=== PATIENT | female | born 2000 | race Two or more races ===

== ENCOUNTER 2018-11-02 19:10 | Emergency (ER) | payer OTHER ==
[~2018-11-02] VITALS: Ht 162.6 cm; Wt 50.8 kg
[2018-11-02] MEDS ORDERED: PRENATAL + DHA1 EAC1 (19:41)
[2018-11-02] MEDS ORDERED: DUI500 PO (22:28)
[2018-11-02] MEDS ORDERED: INTESTINEX680 M1 PO (22:28)
== END 2018-11-02 22:47 ==
LOC: ER 19:10
DX: O23.31 Infections of other parts of urinary tract in pregnancy, first trimester (principal); O26.891 Other specified pregnancy related conditions, first trimester; O23.30 Infections of other parts of urinary tract in pregnancy, unspecified trimester

== ENCOUNTER 2018-12-21 12:49 | Emergency (ER) | payer OTHER ==
[~2018-12-21] VITALS: Ht 162.6 cm; Wt 49.9 kg
[~2018-12-21 12:49] MED LIST: DUI500 PO; INTESTINEX680 M1 PO; PRENATAL + DHA1 EAC1
== END 2018-12-21 20:48 | disposition home or self-care (01) ==
LOC: ER 12:49
DX: O26.892 Other specified pregnancy related conditions, second trimester (principal); R10.2 Pelvic and perineal pain; Z34.02 Encounter for supervision of normal first pregnancy, second trimester

== ENCOUNTER 2019-01-01 13:42 | Emergency (ER) | payer OTHER ==
[~2019-01-01] VITALS: Ht 162.6 cm; Wt 49.9 kg
== END 2019-01-01 17:47 | disposition home or self-care (01) ==
LOC: ER 13:42
DX: O26.891 Other specified pregnancy related conditions, first trimester (principal); R10.2 Pelvic and perineal pain; O26.841 Uterine size-date discrepancy, first trimester; Z34.01 Encounter for supervision of normal first pregnancy, first trimester

== ENCOUNTER → 2019-01-19 | Outpatient (CLI) | payer OTHER | END | disposition home or self-care (01) | LOC: PRENATAL 13:00 | DX: O99.89 Other specified diseases and conditions complicating pregnancy, childbirth and the puerperium (principal); O35.3XX0 Maternal care for (suspected) damage to fetus from viral disease in mother, not applicable or unspecified ==

== ENCOUNTER 2019-03-05 15:25 | Emergency (ER) | payer OTHER ==
[~2019-03-05] VITALS: Ht 162.6 cm; Wt 52.6 kg
[2019-03-05] MEDS ORDERED: PRENATAL TABLE1 EAC1 PO (20:45)
[2019-03-05] MEDS ORDERED: ASPIR 8181 MG PO (20:47)
[2019-03-06] MEDS ORDERED: ZITHROMAX TRI-500 MG PO (09:17)
== END 2019-03-05 19:11 | disposition home or self-care (01) ==
LOC: ER 15:25
DX: R51 Headache (principal); R42 Dizziness and giddiness; B96.0 Mycoplasma pneumoniae [M. pneumoniae] as the cause of diseases classified elsewhere

== ENCOUNTER 2019-03-05 19:43 | Outpatient (CLI) | payer OTHER ==
[2019-03-05] MEDS ORDERED: PRENATAL TABLE1 EAC1 PO (20:45)
[2019-03-05] MEDS ORDERED: ASPIR 8181 MG PO (20:47)
[2019-03-06] MEDS ORDERED: ZITHROMAX TRI-500 MG PO (09:17)
== END 2019-03-06 10:46 | disposition home or self-care (01) ==
LOC: OBS/DEL 19:43 → LDR 19:43 → OBS/DEL 19:52
DX: O26.892 Other specified pregnancy related conditions, second trimester (principal); B96.0 Mycoplasma pneumoniae [M. pneumoniae] as the cause of diseases classified elsewhere; R51 Headache; R42 Dizziness and giddiness

== ENCOUNTER 2019-03-26 13:36 | Outpatient (CLI) | payer OTHER ==
[~2019-03-26 13:36] MED LIST changes: +ASPIR 8181 MG PO; +PRENATAL TABLE1 EAC1 PO; +ZITHROMAX TRI-500 MG PO
== END 2019-03-26 20:44 | disposition home or self-care (01) ==
LOC: OBS/DEL 13:36
DX: O26.893 Other specified pregnancy related conditions, third trimester (principal); R42 Dizziness and giddiness

== ENCOUNTER 2019-04-21 14:36 | Outpatient (CLI) | payer OTHER ==
[2019-04-21] MEDS ORDERED: IRON PO (14:51)
== END 2019-04-22 14:01 | disposition home or self-care (01) ==
LOC: OBS/DEL 14:36
DX: O23.43 Unspecified infection of urinary tract in pregnancy, third trimester (principal)

== ENCOUNTER 2019-06-07 07:41 | Inpatient (IN) | payer OTHER ==
[~2019-06-07] VITALS: Ht 162.6 cm; Wt 59.0 kg
[~2019-06-07 07:41] MED LIST changes: +IRON PO
== END 2019-06-09 17:16 | disposition home or self-care (01) | DRG 768 ==
LOC: LDR 07:41 → OB/GYN 07:41 → SEC-K 06-08 00:54 → OB/GYN 06-08 00:56
PROVIDERS: ADMIT Obstetrics & Gynecology
PROC: 10E0XZZ Delivery of Products of Conception, External Approach (ICD-10-PCS; principal; 2019-06-07)
PROC: 0DQR0ZZ Repair Anal Sphincter, Open Approach (ICD-10-PCS; 2019-06-07)
PROC: 0W8NXZZ Division of Female Perineum, External Approach (ICD-10-PCS; 2019-06-07)
PROC: 3E0P7VZ Introduction of Hormone into Female Reproductive, Via Natural or Artificial Opening (ICD-10-PCS; 2019-06-07)
PROC: 3E033VJ Introduction of Other Hormone into Peripheral Vein, Percutaneous Approach (ICD-10-PCS; 2019-06-07)
PROC: 4A1HXCZ Monitoring of Products of Conception, Cardiac Rate, External Approach (ICD-10-PCS; 2019-06-07)
DX: O70.21 Third degree perineal laceration during delivery, IIIa (principal); Z37.0 Single live birth; Z3A.40 40 weeks gestation of pregnancy; O90.81 Anemia of the puerperium

== ENCOUNTER 2019-12-31 16:50 | Emergency (ER) | payer OTHER ==
[~2019-12-31] VITALS: Ht 162.6 cm; Wt 506.2 kg
== END 2019-12-31 19:22 | disposition home or self-care (01) ==
LOC: ER 16:50
DX: M54.2 Cervicalgia (principal); M25.511 Pain in right shoulder; M62.838 Other muscle spasm

== ENCOUNTER 2020-03-04 17:25 | Emergency (ER) | payer OTHER ==
[~2020-03-04] VITALS: Ht 162.6 cm; Wt 52.2 kg
== END 2020-03-04 21:37 | disposition home or self-care (01) ==
LOC: ER 17:25
DX: R10.2 Pelvic and perineal pain (principal); N83.291 Other ovarian cyst, right side; Z33.1 Pregnant state, incidental; Z20.828 Contact with and (suspected) exposure to other viral communicable diseases

== ENCOUNTER 2020-05-05 23:59 | Emergency (ER) | payer OTHER ==
[~2020-05-05] VITALS: Ht 162.6 cm; Wt 49.4 kg
[2020-05-06] MEDS ORDERED: ZYRTEC10 M3 (00:11)
[2020-05-06] MEDS ORDERED: PRENATAL CAPLE1 EAC1 (00:11)
[2020-05-06] MEDS ORDERED: ACETAMINOPHEN650 M2 PO (04:06)
== END 2020-05-06 04:53 | disposition home or self-care (01) ==
LOC: ER 23:59
DX: O26.892 Other specified pregnancy related conditions, second trimester (principal); S30.0XXA Contusion of lower back and pelvis, initial encounter; V49.9XXA Car occupant (driver) (passenger) injured in unspecified traffic accident, initial encounter; Y93.89 Activity, other specified; Y92.488 Other paved roadways as the place of occurrence of the external cause; Y99.8 Other external cause status

== ENCOUNTER → 2020-07-19 | Outpatient (CLI) | payer OTHER ==
[~2020-07-19] MED LIST changes: +ACETAMINOPHEN650 M2 PO; +PRENATAL CAPLE1 EAC1; +ZYRTEC10 M3
== END | disposition home or self-care (01) ==
LOC: PRENATAL 08:00
PROVIDERS: ATTEND Obstetrics & Gynecology Maternal & Fetal Medicine
DX: O35.0XX1 Maternal care for (suspected) central nervous system malformation in fetus, fetus 1 (principal); O35.3XX1 Maternal care for (suspected) damage to fetus from viral disease in mother, fetus 1; O98.512 Other viral diseases complicating pregnancy, second trimester; Z36.89 Encounter for other specified antenatal screening; Z3A.23 23 weeks gestation of pregnancy

== ENCOUNTER 2020-08-01 06:51 | Outpatient (CLI) | payer OTHER ==
[2020-08-01] MEDS ORDERED: PRENATAL TABLE1 EAC1 PO (07:03)
== END 2020-08-01 12:59 | disposition home or self-care (01) ==
LOC: OBS/DEL 06:51
PROVIDERS: ATTEND Obstetrics & Gynecology
DX: O60.02 Preterm labor without delivery, second trimester (principal); O26.892 Other specified pregnancy related conditions, second trimester; M79.18 Myalgia, other site; Z3A.26 26 weeks gestation of pregnancy

== ENCOUNTER → 2020-08-17 | Outpatient (CLI) | payer OTHER | END | disposition home or self-care (01) | LOC: PRENATAL 16:21 | PROVIDERS: ATTEND Obstetrics & Gynecology Maternal & Fetal Medicine | DX: O26.843 Uterine size-date discrepancy, third trimester (principal); O36.5931 Maternal care for other known or suspected poor fetal growth, third trimester, fetus 1; Z36.89 Encounter for other specified antenatal screening; Z3A.28 28 weeks gestation of pregnancy ==

== ENCOUNTER → 2020-09-07 | Outpatient (CLI) | payer OTHER ==
[~2020-09-07] MED LIST changes: +IRON325 MG PO
== END | disposition home or self-care (01) ==
LOC: PRENATAL 15:48
PROVIDERS: ATTEND Obstetrics & Gynecology Maternal & Fetal Medicine
DX: O26.843 Uterine size-date discrepancy, third trimester (principal); O36.5931 Maternal care for other known or suspected poor fetal growth, third trimester, fetus 1; Z36.89 Encounter for other specified antenatal screening; Z3A.31 31 weeks gestation of pregnancy

== ENCOUNTER 2020-10-05 16:00 | Outpatient (CLI) | payer OTHER ==
[~2020-10-05 16:00] MED LIST changes: -IRON325 MG PO
== END 2020-10-05 17:25 | disposition home or self-care (01) ==
LOC: PRENATAL 16:00
PROVIDERS: ATTEND Obstetrics & Gynecology Maternal & Fetal Medicine
DX: O26.843 Uterine size-date discrepancy, third trimester (principal); O36.5931 Maternal care for other known or suspected poor fetal growth, third trimester, fetus 1; Z36.89 Encounter for other specified antenatal screening; Z3A.35 35 weeks gestation of pregnancy

== ENCOUNTER 2020-10-31 08:56 | Inpatient (IN) | payer OTHER ==
[~2020-10-31] VITALS: Ht 162.6 cm; Wt 58.5 kg
[2020-10-31] MEDS ORDERED: IRON325 MG PO (09:42)
== END 2020-11-02 14:05 | disposition home or self-care (01) | DRG 807 ==
LOC: OB/GYN 08:56 → LDR 08:56 → OB/GYN 11-01 01:32 → LDR 11-02 16:44
PROVIDERS: ADMIT Obstetrics & Gynecology; ATTEND Obstetrics & Gynecology
PROC: 10E0XZZ Delivery of Products of Conception, External Approach (ICD-10-PCS; principal; 2020-10-31)
PROC: 0HQ9XZZ Repair Perineum Skin, External Approach (ICD-10-PCS; 2020-10-31)
PROC: 3E0P7VZ Introduction of Hormone into Female Reproductive, Via Natural or Artificial Opening (ICD-10-PCS; 2020-10-31)
PROC: 4A1HXFZ Monitoring of Products of Conception, Cardiac Rhythm, External Approach (ICD-10-PCS; 2020-10-31)
DX: O70.0 First degree perineal laceration during delivery (principal); Z37.0 Single live birth; Z3A.39 39 weeks gestation of pregnancy; Z20.822 Contact with and (suspected) exposure to COVID-19

== ENCOUNTER 2022-01-23 23:32 | Emergency (ER) | payer OTHER ==
[~2022-01-23] VITALS: Ht 160 cm; Wt 50.3 kg
[~2022-01-23 23:32] MED LIST changes: +IRON325 MG PO
[2022-01-24] MEDS ORDERED: BACTRIM DS TAB1 EACH PO (04:27)
== END 2022-01-24 01:44 | disposition home or self-care (01) ==
LOC: ER 23:32
DX: N30.90 Cystitis, unspecified without hematuria (principal)

== ENCOUNTER 2022-11-03 13:43 | Emergency (ER) | payer OTHER ==
[~2022-11-03] VITALS: Ht 157.5 cm; Wt 49.0 kg
[~2022-11-03 13:43] MED LIST changes: +BACTRIM DS TAB1 EACH PO
[2022-11-03] MEDS ORDERED: BACTRIM DS TAB1 EACH PO (17:19)
== END 2022-11-03 17:27 | disposition home or self-care (01) ==
LOC: ER 13:43
DX: N39.0 Urinary tract infection, site not specified (principal)
CPT/HCPCS: 96372; 99282; J3490

== ENCOUNTER 2022-12-05 07:24 | Emergency (ER) | payer OTHER ==
[~2022-12-05] VITALS: Ht 157.5 cm; Wt 50.8 kg
[2022-12-05 09:20] LABS: HEMATOCRIT 38.7 % (36.0-45.00); HEMOGLOBIN 12.2 g/dL (12.0-15.00); MEAN CELL VOLUME 75.9 fL (80.00-100.00); MEAN CORPUSCULAR HGB CONC 31.6 g/dl (32.0-36.0); PLATELET COUNT 232 K/uL (150-450); RED CELL DISTRIBUTION WIDTH 15.1 % (11.5-14.5)
[2022-12-05 10:31] LABS: CREATININE SERUM 0.7 mg/dL (0.55-1.02); GFR 102.8; POTASSIUM 3.76 mEq/L (3.5-5.1)
[2022-12-05 13:39] LABS: URINE APPEARANCE Clear; URINE BILIRRUBIN Negative (NEGATIVE); URINE BLOOD Negative; URINE COLOR Yellow; URINE GLUCOSE Negative (NEGATIVE); URINE LEUKOCYTE Negative; URINE NITRATE Negative; URINE PROTEIN Negative (NEGATIVE); URINE UROBILINOGEN 0.2 E.U./dl
[2022-12-05 13:42] LABS: URINE BACTERIA 26.4 uL (0.0-1933); URINE EPITHELIAL CELLS 9.8 uL (0.0-38.8); URINE RBC 2.5 uL (0.0-20.8); URINE WBC 7.8 uL (0.0-23.2)
== END 2022-12-05 14:10 | disposition home or self-care (01) ==
LOC: ER 07:25
PROVIDERS: Emergency Medicine
DX: K52.89 Other specified noninfective gastroenteritis and colitis (principal)

== ENCOUNTER 2023-11-27 15:06 | Emergency (ER) | payer OTHER ==
[~2023-11-27] VITALS: Ht 157.5 cm; Wt 48.5 kg
[~2023-11-27 15:06] MED LIST changes: +FLUCONAZOLE200 MG PO
[2023-11-27] MEDS ORDERED: KETOROLAC TROMETHAMINE 60 MG VIAL IM ONE (17:15)
== END 2023-11-27 17:50 | disposition home or self-care (01) ==
LOC: ER 15:07
DX: R51.9 Headache, unspecified (principal)

== ENCOUNTER 2024-01-18 10:13 | Emergency (ER) | payer OTHER ==
[~2024-01-18] VITALS: Ht 157.5 cm; Wt 52.6 kg
[2024-01-18] MEDS ORDERED: ORPHENADRINE CITRATE 30 MG/ML AMPUL IM ONE (11:00)
[2024-01-18] MEDS ORDERED: KETOROLAC TROMETHAMINE 30 MG VIAL IM ONE (11:00)
== END 2024-01-18 12:43 | disposition home or self-care (01) ==
LOC: ER 10:15
DX: M54.89 Other dorsalgia (principal)

== ENCOUNTER 2024-07-02 14:02 | Emergency (ER) | payer OTHER ==
[~2024-07-02] VITALS: Ht 157.5 cm; Wt 61.7 kg
[2024-07-02] MEDS ORDERED: ZYRTEC10 MG PO (14:38)
[2024-07-02] MEDS ORDERED: KETOROLAC TROMETHAMINE 30 MG VIAL IM ONE (17:15)
[2024-07-02] MEDS ORDERED: KETOROLAC TROMETHAMINE 30 MG VIAL ONE (17:16)
== END 2024-07-02 18:36 | disposition home or self-care (01) ==
LOC: ER 14:18
DX: G43.909 Migraine, unspecified, not intractable, without status migrainosus (principal)

== ENCOUNTER 2024-07-15 15:12 | Emergency (ER) | payer OTHER ==
[~2024-07-15] VITALS: Ht 157.5 cm; Wt 61.7 kg
[~2024-07-15 15:12] MED LIST changes: +ZYRTEC10 MG PO
[2024-07-15 15:33] VITALS: BP 95/60; O2SAT 98
[2024-07-15] MEDS ORDERED: CEFTRIAXONE SODIUM 2,000 MG VIAL ONE (17:07)
[2024-07-15] MEDS ORDERED: 0.9 % SODIUM CHLORIDE 1,000 ML IV SCH (17:15)
[2024-07-15] MEDS ORDERED: CEFTRIAXONE SODIUM 2,000 MG VIAL IV ONE (17:15)
[2024-07-15 17:33] LABS: BASO % 1.6 % (0.1-1.2); EOS # 0.27 (0.04-0.54); EOS % 6.4 % (0.7-7.0); HEMOGLOBIN 10.9 g/dL (11.2-15.7); LYMPH # 1.55 (1.18-3.74); LYMPH % 36.5 % (19.3-53.1); MEAN CORPUSCULAR HEMOGLOBIN 23.4 pg (25.6-32.2); MONO # 0.52 (0.24-0.82); NEUT # 1.83 (1.56-6.13); NEUT % 43.1 % (34.0-71.1); PLATELET COUNT 259 K/uL (163-369); RED BLOOD COUNT 4.66 M/uL (3.93-5.22); RED CELL DISTRIBUTION WIDTH 14.3 % (11.6-14.4)
[2024-07-15 17:35] LABS: MONO % 12.2 % (4.7-12.5)
[2024-07-15 18:17] LABS: ALBUMIN 3.5 gm/dL (3.4-5.0); BILIRUBIN TOTAL 0.44 mg/dL (0.3-1.2); CALCIUM 8.5 mg/dL (8.5-10.1); CREATININE SERUM 0.58 mg/dL (0.55-1.02); GFR 125.66; GLOBULINA 3.4 G/DL (2.4-3.5); POTASSIUM 3.52 mEq/L (3.5-5.1); TOTAL PROTEIN 6.9 gm/dL (6.4-8.2)
[2024-07-15 18:35] LABS: URINE APPEARANCE Clear; URINE BILIRRUBIN Negative (NEGATIVE); URINE BLOOD Negative; URINE COLOR Yellow; URINE GLUCOSE Negative (NEGATIVE); URINE KETONE Negative (NEGATIVE); URINE LEUKOCYTE Negative; URINE NITRATE Negative; URINE PROTEIN Negative (NEGATIVE); URINE UROBILINOGEN 0.2 E.U./dl
[2024-07-15 18:41] LABS: URINE BACTERIA 283.9 uL (0.0-1933); URINE EPITHELIAL CELLS 17.7 uL (0.0-38.8)
[2024-07-15 18:44] LABS: URINE RBC 1.6 uL (0.0-20.8); URINE WBC 0.9 uL (0.0-23.2)
[2024-07-15] MEDS ORDERED: DICLOFENAC SODI75 MG PO (21:46)
== END 2024-07-15 22:04 | disposition home or self-care (01) ==
LOC: ER 15:15
PROVIDERS: General Practice
DX: R10.2 Pelvic and perineal pain (principal)

== ENCOUNTER 2024-09-09 14:25 | Emergency (ER) | payer OTHER ==
[~2024-09-09] VITALS: Ht 157.5 cm; Wt 58.1 kg
[~2024-09-09 14:25] MED LIST changes: +DICLOFENAC SODI75 MG PO
[2024-09-09 15:28] VITALS: BP 99/67; O2SAT 100
[2024-09-09 16:53] LABS: BASO % 0.8 % (0.1-1.2); EOS # 0.28 (0.04-0.54); EOS % 4.7 % (0.7-7.0); LYMPH # 1.44 (1.18-3.74); LYMPH % 24.2 % (19.3-53.1); MEAN PLATELET VOLUME 11.10 fl (9.4-12.4); MONO # 0.50 (0.24-0.82); MONO % 8.4 % (4.7-12.5); NEUT # 3.67 (1.56-6.13); NEUT % 61.7 % (34.0-71.1); RED CELL DISTRIBUTION WIDTH 14.8 % (11.6-14.4)
[2024-09-09 17:20] LABS: URINE APPEARANCE Clear; URINE BILIRRUBIN Negative (NEGATIVE); URINE BLOOD Negative; URINE COLOR Yellow; URINE GLUCOSE Negative (NEGATIVE); URINE KETONE 15 (NEGATIVE); URINE LEUKOCYTE Negative; URINE NITRATE Negative; URINE PROTEIN Negative (NEGATIVE); URINE UROBILINOGEN 0.2 E.U./dl
[2024-09-09 17:21] LABS: URINE BACTERIA 393.6 uL (0.0-1933); URINE EPITHELIAL CELLS 24.3 uL (0.0-38.8); URINE RBC 5.4 uL (0.0-20.8); URINE WBC 2.7 uL (0.0-23.2)
[2024-09-09 17:23] LABS: URINE CAST 0.29 uL (0.0-1.40)
== END 2024-09-09 19:27 | disposition home or self-care (01) ==
LOC: ER 15:09
PROVIDERS: General Practice
DX: O26.891 Other specified pregnancy related conditions, first trimester (principal); Z3A.01 Less than 8 weeks gestation of pregnancy; R10.2 Pelvic and perineal pain

== ENCOUNTER 2024-09-23 15:31 | Emergency (ER) | payer OTHER ==
[~2024-09-23] VITALS: Ht 154.9 cm; Wt 58.1 kg
[2024-09-23] MEDS ORDERED: ONDANSETRON HCL 2 MG/ML VIAL IV ONE (16:30)
[2024-09-23] MEDS ORDERED: 0.9 % SODIUM CHLORIDE 1,000 ML IV ONE (16:30)
[2024-09-23] MEDS ORDERED: FAMOtidine 10 MG/ML (4ML VIAL) IV ONE (16:30)
[2024-09-23 17:04] LABS: BASO % 1.1 % (0.1-1.2); EOS # 0.27 (0.04-0.54); EOS % 4.1 % (0.7-7.0); LYMPH # 1.46 (1.18-3.74); LYMPH % 22.4 % (19.3-53.1); MEAN PLATELET VOLUME 10.70 fl (9.4-12.4); MONO # 0.73 (0.24-0.82); MONO % 11.2 % (4.7-12.5); NEUT # 3.96 (1.56-6.13); NEUT % 60.9 % (34.0-71.1); RED CELL DISTRIBUTION WIDTH 14.2 % (11.6-14.4)
[2024-09-23 17:22] LABS: COVID-19 AG NEGATIVE (NEGATIVE)
[2024-09-23] MEDS ORDERED: PEPCID AC20 MG PO (18:27)
[2024-09-23] MEDS ORDERED: ZOFRAN8 MG PO (18:27)
== END 2024-09-23 19:27 | disposition home or self-care (01) ==
LOC: ER 15:43
PROVIDERS: General Practice
DX: O21.0 Mild hyperemesis gravidarum (principal); Z3A.01 Less than 8 weeks gestation of pregnancy; Z20.822 Contact with and (suspected) exposure to COVID-19

== ENCOUNTER 2024-12-09 15:40 | Emergency (ER) | payer OTHER ==
[~2024-12-09] VITALS: Ht 157.5 cm; Wt 54.0 kg
[~2024-12-09 15:40] MED LIST changes: +PEPCID AC20 MG PO; +ZOFRAN8 MG PO
[2024-12-09] MEDS ORDERED: PRENATA CHEWAB1 EACH PO (16:23)
[2024-12-09] MEDS ORDERED: VITAMIN B6100 MG/2.5 PO (16:23)
[2024-12-09] MEDS ORDERED: FAMOTIDINE/PF 20 MG/2 ML VIAL ONE (16:47)
[2024-12-09] MEDS ORDERED: ACETAMINOPHEN 500 MG GEL..CAP PO ONE ×2 (16:47→17:00)
[2024-12-09] MEDS ORDERED: RINGERS SOLUTION,LACTATED 1,000 ML IV ONE (17:00)
[2024-12-09] MEDS ORDERED: FAMOTIDINE/PF 20 MG/2 ML VIAL IV ONE (17:00)
[2024-12-09 17:20] LABS: BASO % 0.5 % (0.1-1.2); EOS # 0.46 (0.04-0.54); EOS % 5.9 % (0.7-7.0); LYMPH # 1.39 (1.18-3.74); LYMPH % 17.9 % (19.3-53.1); MEAN PLATELET VOLUME 10.70 fl (9.4-12.4); MONO # 0.54 (0.24-0.82); MONO % 6.9 % (4.7-12.5); NEUT # 5.30 (1.56-6.13); NEUT % 68.3 % (34.0-71.1); RED CELL DISTRIBUTION WIDTH 15.0 % (11.6-14.4)
[2024-12-09 17:52] LABS: ALT/SGPT 15.0 U/L (12-78); AST/SGOT 16.0 U/L (15-37); BILIRUBIN TOTAL 0.31 mg/dL (0.3-1.2); BUN CREA RATIO 20.0 (7.0-25.0); CREATININE SERUM 0.51 mg/dL (0.55-1.02); GFR 145.77; GLOBULINA 3.6 G/DL (2.4-3.5); GLUCOSE FASTING 80.0 mg/dL (65-100); OSMOLALITY SERUM 276.0 MOSM/KG (275-295)
[2024-12-09 18:24] LABS: COVID-19 AG NEGATIVE (NEGATIVE)
[2024-12-09 19:27] LABS: URINE APPEARANCE Clear; URINE BILIRRUBIN Negative (NEGATIVE); URINE BLOOD Negative; URINE COLOR Yellow; URINE GLUCOSE Negative (NEGATIVE); URINE KETONE Negative (NEGATIVE); URINE LEUKOCYTE Negative; URINE NITRATE Negative; URINE PROTEIN Negative (NEGATIVE); URINE UROBILINOGEN 0.2 E.U./dl
[2024-12-09 19:30] LABS: URINE BACTERIA 619.0 uL (0.0-1933); URINE EPITHELIAL CELLS 41.9 uL (0.0-38.8); URINE RBC 5.2 uL (0.0-20.8); URINE WBC 16.3 uL (0.0-23.2)
[2024-12-09 19:38] LABS: URINE CAST 0.14 uL (0.0-1.40)
== END 2024-12-09 21:16 | disposition home or self-care (01) ==
LOC: ER 15:41
PROVIDERS: Student in an Organized Health Care Education/Training Program
DX: Z33.1 Pregnant state, incidental (principal); Z3A.18 18 weeks gestation of pregnancy; R42 Dizziness and giddiness; R53.1 Weakness; Z20.822 Contact with and (suspected) exposure to COVID-19

== ENCOUNTER → 2024-12-28 15:25 | Outpatient (CLI) | payer OTHER ==
[~2024-12-28 15:25] MED LIST changes: +PRENATA CHEWAB1 EACH PO; +VITAMIN B6100 MG/2.5 PO
== END | disposition home or self-care (01) ==
LOC: PRENATAL 15:25
PROVIDERS: ATTEND Obstetrics & Gynecology Maternal & Fetal Medicine
DX: O44.02 Complete placenta previa NOS or without hemorrhage, second trimester (principal); O34.42 Maternal care for other abnormalities of cervix, second trimester; O98.912 Unspecified maternal infectious and parasitic disease complicating pregnancy, second trimester; O99.012 Anemia complicating pregnancy, second trimester; Z3A.20 20 weeks gestation of pregnancy